=== PATIENT | female | born 1970 | race Caucasian/White ===

== ENCOUNTER 2017-10-10 09:14 | Observation (INO) | payer SELFPAY ==
[2017-10-10 14:00] VITALS: BP 107/61; PULSE 89; RESP 18; TEMP 98.5; O2SAT 96
[2017-10-10] MEDS ORDERED: ACETAMINOPHEN 325 MG TAB PO PRN (14:45)
[2017-10-10] MEDS ORDERED: ONDANSETRON HCL 4 MG/2 ML VIAL IV PUSH PRN (14:45)
[2017-10-10] MEDS ORDERED: SODIUM CHLOR 0.9% 250 ML INJ 250 ML IV ONE (14:45)
[2017-10-10] MEDS: ESTROGENS CONJUGATED 25 MG/5 ML VIAL IV PUSH SCH ×2 (15:46→18:26)
[2017-10-10] MEDS: FERROUS SULFATE 325 MG (65 MG ELEMENTAL IRON) TAB PO SCH (18:07)
[2017-10-10] MEDS: diphenhydrAMINE HCL 25 MG CAP PO PRN ×2 (18:07→23:55)
[2017-10-10 18:15] VITALS: BP 120/65; PULSE 95; RESP 18; TEMP 98.8; O2SAT 98
--- NOTE | 2017-10-10 18:53 | RADRPT ---
EXAM DATE/TIME: 10/10/2017 17:35 [facility] COMPARISON: No previous studies available for comparison. INDICATIONS : Bleeding. MEDICAL HISTORY : Asthma. Claustrophobia. SURGICAL HISTORY : Tubal ligation. section. ENCOUNTER: Initial ACUITY: 1 month PAIN SCORE: 0/10 LOCATION: Bilateral pelvis MEASUREMENTS: UTERUS: 9.5 x 7.5 x 6.9 cm ENDOMETRIAL STRIPE: 10 mm RIGHT OVARY: cm Non visualized LEFT OVARY: cm Non visualized FINDINGS: UTERUS: There is a 4.0 cm solid area of heterogeneous circumscribed echogenicity in the fundus with vasculari ty consistent with fibroid. Multiple nabothian cysts in the cervix up to 1 cm in size RIGHT OVARY: Not visualized LEFT OVARY: Not visualized MISCELLANEOUS: No free fluid. CONCLUSION: 4.0 cm fibroid fundus of uterus. Endometrium is 10 mm in thickness without encroachment. Bilateral ovaries not visualized with no evidence free fluid or adnexal mass Tuan Archer MD on October 10, 2017 at 18:49 Board Certified Radiologist. This report was verified electronically.
[2017-10-10 18:54] VITALS: BP 120/65; PULSE 95; RESP 18; TEMP 98.8; O2SAT 98
[2017-10-10 19:06] VITALS: BP 119/66; PULSE 92; RESP 18; TEMP 99.2; O2SAT 98
--- NOTE | 2017-10-10 21:43 | HHI.HP ---
HPI Chief Complaint heavy vaginal bleeding Travel History International Travel<30 Days: No Contact w/Intl Traveler<30Days: No History of Present Illness HPI 47 yo admitted from ED for menorrhagia and symptomatic anemia. She missed her period last month and has now had a period for 3 weeks. First 2 weeks was spotting, only required light tampon. The last seven days, she has had very heavy flow and has been using menstrual cups; believes she has bleed at least 8 oz a day. She ahs only had to change her cup 2 times today, min bleeding now. She is feeling very fatigued, dyspnea on exertion, having palpitations. + orthostatic hypotension. Hgb at [facility] 5.4. She was initially tachycardic but responded well to fluid bolus, normotensive. In ED she did have a large clot on speculum exam; pt states she really had not had bleeding since then. Menses are usually every four weeks; she typically has 3 heavy days; first day she has super tampon change every hour and next two days supertampon change every two hours. Over the last two years her bleeding profile has been changing ; approx every other month she has a very light period. She has a history of anemia; states never had a workup as to why. She does take iron at home. She was able to donate blood six months ago so she must have had normal hemoglobin at that time. 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 She does not like doctors or medicine; she follows a more holistic approach. History Past Medical History Narrative Medical anemia Obstetric History Obstetric History G1 CD, G2 and 3 Past Surgical History Narrative Surgical CD and pp btl Family History Narrative Family History Mother w breast cancer, after age 50 (recommended pt start having mammograms). No family hx of colon, uterine or ovarian cancer Social History Alcohol Use: No Tobacco Use: No Substance Abuse: No Allergies-Medications (Allergen,Severity, Reaction): Coded Allergies: codeine (Verified Allergy, Severe, Nausea/Vomiting, 10/10/17) Home Meds No Active Prescriptions or Reported Meds Review of Systems General / Constitutional: No: Fever, Weight Gain, Chills, Other Eyes: No: Diploplia, Blurred Vision, Visual changes, Pain, Photophobia HENT: No: Headaches, Vertigo, Lightheadedness Cardiovascular: Palpitations, No: Irregular Rhythm, Chest Pain or Discomfort, Tachycardia, Syncope, Varicosities, Edema, Cyanosis Respiratory: Short of Breath, No: Cough, Other Gastrointestinal: No: Nausea, Vomiting, Diarrhea Genitourinary: Menorrhagia, Vaginal Bleeding, No: Decreased Urinary Output, Oliguria Musculoskeletal: No: Limited ROM, Weakness, Cramping, Edema, Pain Skin: No Rash, No Itching, No Dryness, No Lumps, No Change in Pigmentation, No Change in Nails, No Alopecia, No Lesions Neurologic: Weakness, Dizziness, No: Syncope, Focal Abnormalities, Coordination Problem, Headache, Slurred Speech, Seizures Psychiatric: No: Depression, Suicidal Ideations, Homicidal Ideation Endocrine: No: Heat Intolerance, Cold Intolerance, Polydipsia, Polyuria, Other Physical Exam Vital Signs Date Time Temp Pulse Resp B/P (MAP) Pulse Ox O2 Delivery O2 Flow Rate FiO2 10/10/17 19:06 99.2 92 18 119/66 98 10/10/17 18:54 98.8 95 18 120/65 98 10/10/17 18:15 98.8 95 18 120/65 (83) 98 10/10/17 14:00 98.5 89 18 107/61 (76) 96 Narrative GENERAL: Well-nourished, well-developed patient. SKIN: Warm and dry. HEAD: Normocephalic and atraumatic. EYES: No scleral icterus. No injection or drainage. ENT: No nasal drainage noted. Mucous membranes pink. Airway patent. NECK: Supple, trachea midline. No JVD. CARDIOVASCULAR: Regular rate and rhythm without murmurs, gallops, or rubs. RESPIRATORY: Breath sounds equal bilaterally. No accessory muscle use. ABDOMEN/GI: Abdomen soft, non-tender, bowel sounds present, no rebound, no guarding GENITOURINARY: External Genitalia: defer EXTREMITIES: No cyanosis or edema. BACK: Nontender without obvious deformity. No CVA tenderness. NEUROLOGICAL: Awake and alert. Motor and sensory grossly within normal limits. Normal speech. Caprini VTE Risk Assessment Caprini VTE Risk Assessment: No/Low Risk (score <= 1) VTE Pharm Contraindication: Active bleeding Caprini Risk Assessment Model Point Value = 1 Point Value = 2 Point Value = 3 Point Value = 5 Age 41-60 Minor surgery BMI > 25 kg/m2 Swollen legs Varicose veins or History of unexplained or recurrent spontaneous Oral contraceptives or hormone replacement Sepsis (< 1 month) Serious lung disease, including pneumonia (< 1 month) Abnormal pulmonary function Acute myocardial infarction Congestive heart failure (< 1 month) History of inflammatory bowel disease Medical patient at bed rest Age 61-74 Arthroscopic surgery Major open surgery (> 45 min) Laparoscopic surgery (> 45 min) Malignancy Confined to bed (> 72 hours) Immobilizing plaster cast Central venous access Age >= 75 History of VTE Family history of VTE Factor V Leiden Prothrombin [id number] Lupus anticoagulant Anticardiolipin antibodies Elevated serum homocysteine Heparin-induced thrombocytopenia Other congenital or acquired thrombophilia Stroke (< 1 month) Elective arthroplasty Hip, pelvis, or leg fracture Acute spinal cord injury (< 1 month) Prophylaxis Regimen Total Risk Factor Score Risk Level Prophylaxis Regimen 0-1 Low Early ambulation 2 Moderate Order ONE of the following: *Sequential Compression Device (SCD) *Heparin 5000 units SQ BID 3-4 Higher Order ONE of the following medications: *Heparin 5000 units SQ TID *Enoxaparin/Lovenox 40 mg SQ daily (WT < 150 kg, CrCl > 30 mL/min) *Enoxaparin/Lovenox 30 mg SQ daily (WT < 150 kg, CrCl > 10-29 mL/min) *Enoxaparin/Lovenox 30 mg SQ BID (WT < 150 kg, CrCl > 30 mL/min) AND/OR *Sequential Compression Device (SCD) 5 or more Highest Order ONE of the following medications: *Heparin 5000 units SQ TID (Preferred with Epidurals) *Enoxaparin/Lovenox 40 mg SQ daily (WT < 150 kg, CrCl > 30 mL/min) *Enoxaparin/Lovenox 30 mg SQ daily (WT < 150 kg, CrCl > 10-29 mL/min) *Enoxaparin/Lovenox 30 mg SQ BID (WT < 150 kg, CrCl > 30 mL/min) AND *Sequential Compression Device (SCD) Data Data Vital Signs Reviewed: Yes Orders Orders Place In Observation (10/10/17 ) Vital Signs (Adult) Q4H (10/10/17 14:31) Activity Oob Ad Beth (10/10/17 14:31) ^ Monitor (10/10/17 14:31) Diet Regular Basic (10/10/17 Dinner) Complete Blood Count With Diff (10/11/17 06:00) Ferrous Sulfate (Ferrous Sulfate) (10/10/17 18:00) Estrogens Conjugated Inj (Premarin Inj) (10/10/17 15:00) Ondansetron Inj (Zofran Inj) (10/10/17 14:45) Vte Prophylaxis Not Indicated (10/10/17 14:31) Scd Bilateral/Knee High LANA.BID (10/10/17 14:31) Red Blood Cells (Rbc) (10/10/17 14:31) Blood Product Administration .UPON TRANSFUSION (10/10/17 14:31) Sodium Chlor 0.9% 250 Ml Inj (Ns 250 Ml (10/10/17 14:45) Acetaminophen (Tylenol) (10/10/17 14:45) Diphenhydramine (Benadryl) (10/10/17 14:45) Blood Product Administration (10/10/17 17:22) Us Pelvis Comp W Transvaginal (10/10/17 ) Hepatic Functional Panel (10/11/17 06:00) Thyroid Stimulating Hormone (10/11/17 06:00) Basic Metabolic Panel (Bmp) (10/11/17 06:00) Assessment/Plan Problem List: (1) Anemia ICD Codes: D64.9 - Anemia, unspecified Plan: 47 yo being admitted for symptomatic anemia secondary to menorrhagia. Initially tachycardia, responded well to iv fluids. She has 2 units of prbc ordered and ready for transfusion. She has received two doses of IV estrogen. Vaginal bleeding minimal now. Will repeat hgb in am. TVUS reviewed with patient, one cm fundal fibroid, ES greater than 1cm. Discussed importance of outpatient endometrial biopsy and pap smear to rule out malignancy. (2) Menorrhagia ICD Codes: N92.0 - Excessive and frequent menstruation with regular cycle Assessment and Plan 47 yo here for anemia and menorrhagia. Vitals responded well to ivf. She has had min bleeding now. S/P 2 doses of estrogen. 2 uprbc ordered and available now. TVUS with 4 cm fibroid and ES of greater than 1 cm. Discussed need for outpt emb and pap. discussed importance of getting mammogram as well. Will check cbc and tsh in am Mami Giron MD Oct 10, 2017 21:43
[2017-10-11] VITALS: BP 105/57; PULSE 90; RESP 17; TEMP 98.4; O2SAT 99
[2017-10-11 00:30] VITALS: BP 101/62; PULSE 80; RESP 18; TEMP 96.2; O2SAT 98
[2017-10-11 06:53] LABS: AUTOMATED NEUTROPHIL # 4.1 TH/MM3 (1.8-7.7); BASOPHIL % 0.4 % (0.0-2.0); EOSINOPHIL % 0.7 % (0.0-4.0); HEMATOCRIT 26.6 % (35.0-46.0); HEMOGLOBIN 9.4 GM/DL (11.6-15.3); LYMPH % 17.5 % (9.0-44.0); MEAN CELL VOLUME 87.5 FL (80.0-100.0); MEAN CORPUSCULAR HEMOGLOBIN 30.9 PG (27.0-34.0); MEAN CORPUSCULAR HGB CONC 35.3 % (32.0-36.0); MEAN PLATELET VOLUME 8.5 FL (7.0-11.0); MONO % 6.2 % (0.0-8.0); MONOCYTE # 0.3 TH/MM3 (0-0.9); NEUT % 75.2 % (16.0-70.0); PLATELET COUNT 259 TH/MM3 (150-450); RED BLOOD COUNT 3.04 MIL/MM3 (4.00-5.30); RED CELL DISTRIBUTION WIDTH 15.7 % (11.6-17.2); WHITE BLOOD COUNT 5.5 TH/MM3 (4.0-11.0)
[2017-10-11 07:17] LABS: ALBUMIN 3.2 GM/DL (3.4-5.0); BICARBONATE 27.1 MEQ/L (21.0-32.0); CALCIUM 8.3 MG/DL (8.5-10.1); CREATININE 0.72 MG/DL (0.50-1.00); DIRECT BILIRUBIN ADULT 0.1 MG/DL (0.0-0.2)
[2017-10-11 07:28] LABS: INDIRECT BILIRUBIN 0.3 MG/DL (0.0-0.8); TOTAL BILIRUBIN ADULT 0.4 MG/DL (0.2-1.0)
[2017-10-11 08:00] VITALS: BP 114/60; PULSE 94; RESP 17; TEMP 98.3; O2SAT 99
[2017-10-11] MEDS ORDERED: medroxyPROGESTERone ACETATE 10 MG TAB PO SCH (09:00)
[2017-10-11] MEDS: FERROUS SULFATE 325 MG (65 MG ELEMENTAL IRON) TAB PO SCH (09:08)
--- NOTE | 2017-10-11 09:53 | HHI.PR ---
LAYOUT OPERATOR Note Note S: Pt feeling better, improved energy s/p 2 u prbc overnight. She is ambulating without difficulties. O: Vital Signs Date Time Temp Pulse Resp B/P (MAP) Pulse Ox O2 Delivery O2 Flow Rate FiO2 10/11/17 08:00 98.3 94 17 114/60 (78) 99 10/11/17 00:30 96.2 80 18 101/62 98 10/11/17 00:00 98.4 90 17 105/57 99 10/10/17 19:06 99.2 92 18 119/66 98 10/10/17 18:54 98.8 95 18 120/65 98 10/10/17 18:15 98.8 95 18 120/65 (83) 98 10/10/17 14:00 98.5 89 18 107/61 (76) 96 GEN NAD, no longer pale RESP CTAB ABD soft, nt/nd min bleeding EXT no c/c/e Laboratory Tests Test 10/11/17 06:13 White Blood Count 5.5 TH/MM3 (4.0-11.0) Red Blood Count 3.04 MIL/MM3 (4.00-5.30) Hemoglobin 9.4 GM/DL (11.6-15.3) Hematocrit 26.6 % (35.0-46.0) Mean Corpuscular Volume 87.5 FL (80.0-100.0) Mean Corpuscular Hemoglobin 30.9 PG (27.0-34.0) Mean Corpuscular Hemoglobin Concent 35.3 % (32.0-36.0) Red Cell Distribution Width 15.7 % (11.6-17.2) Platelet Count 259 TH/MM3 (150-450) Mean Platelet Volume 8.5 FL (7.0-11.0) Neutrophils (%) (Auto) 75.2 % (16.0-70.0) Lymphocytes (%) (Auto) 17.5 % (9.0-44.0) Monocytes (%) (Auto) 6.2 % (0.0-8.0) Eosinophils (%) (Auto) 0.7 % (0.0-4.0) Basophils (%) (Auto) 0.4 % (0.0-2.0) Neutrophils # (Auto) 4.1 TH/MM3 (1.8-7.7) Lymphocytes # (Auto) 1.0 TH/MM3 (1.0-4.8) Monocytes # (Auto) 0.3 TH/MM3 (0-0.9) Eosinophils # (Auto) 0.0 TH/MM3 (0-0.4) Basophils # (Auto) 0.0 TH/MM3 (0-0.2) CBC Comment DIFF FINAL Differential Comment Blood Urea Nitrogen 5 MG/DL (7-18) Creatinine 0.72 MG/DL (0.50-1.00) Random Glucose 80 MG/DL (74-106) Total Protein 6.0 GM/DL (6.4-8.2) Albumin 3.2 GM/DL (3.4-5.0) Calcium Level 8.3 MG/DL (8.5-10.1) Alkaline Phosphatase 48 U/L (45-117) Aspartate Amino Transf (AST/SGOT) 19 U/L (15-37) Alanine Aminotransferase (ALT/SGPT) 21 U/L (10-53) Total Bilirubin 0.4 MG/DL (0.2-1.0) Direct Bilirubin 0.1 MG/DL (0.0-0.2) Sodium Level 142 MEQ/L (136-145) Potassium Level 3.8 MEQ/L (3.5-5.1) Chloride Level 109 MEQ/L (98-107) Carbon Dioxide Level 27.1 MEQ/L (21.0-32.0) Anion Gap 6 MEQ/L (5-15) Estimat Glomerular Filtration Rate 87 ML/MIN (>89) Indirect Bilirubin 0.3 MG/DL (0.0-0.8) Thyroid Stimulating Hormone 3rd Gen 4.300 uIU/ML (0.358-3.740) A/P: 43 yo with symptomatic anemia 2/2 menorrhagia- now improved s/p 2 u prbc and estrogen iv x 2. She has min-mod bleeding today. Will send home with provera 10mg daily. Will check T4 as TSH is elevated and this may contribute to abn bleeding. Once T4 is resulted, will d/c home today. She is advised to f/u for pap /emb in office. Mami Giron MD Oct 11, 2017 09:53
--- NOTE | 2017-10-11 09:56 | HHI.DCPOC ---
Discharge Care Plan Diagnosis: (1) Anemia (2) Menorrhagia Your Health Problems Are: Vaginal bleeding Additional Problems S/P 2 uprbc. Procedures TVUS Consults none Report Symptoms to Your Doctor -Temperature above 100.5 degrees -Unusual pain or calf pain, shortness of breath, dyspnea -Increased vaginal bleeding -Painful or difficulty urinating Goals to Promote Your Health * To prevent worsening of your condition and complications * To maintain your health at the optimal level Directions to Meet Your Goals Take your medications as prescribed Follow your dietary instruction Follow activity as directed Ensure plenty of rest for recovery Drink fluids for hydration Keep your appointments as scheduled Take your immunizations and boosters as scheduled If your symptoms worsen call your PCP, if no PCP go to Urgent Care Center or Emergency Room Smoking is Dangerous to Your Health. Avoid second hand smoke Call the 24-hour crisis hotline for domestic abuse at Mami Giron MD Oct 11, 2017 09:56
[2017-10-11] MEDS ORDERED: MEDR10TA7 PO (09:58)
[2017-10-11 12:00] VITALS: BP 106/53; PULSE 105; RESP 18; TEMP 98.5; O2SAT 99
[2017-10-11] MEDS ORDERED: FERR325T20 PO (13:46)
== END 2017-10-11 15:03 | disposition home or self-care (01) ==
LOC: NEDDLT 09:14 → N06A 14:28
PROVIDERS: ADMIT Obstetrics & Gynecology; ATTEND Obstetrics & Gynecology
DX: N92.0 Excessive and frequent menstruation with regular cycle (principal); D50.0 Iron deficiency anemia secondary to blood loss (chronic); R53.83 Other fatigue; R06.09 Other forms of dyspnea; R00.2 Palpitations; I95.9 Hypotension, unspecified; R00.0 Tachycardia, unspecified; D25.9 Leiomyoma of uterus, unspecified; N88.8 Other specified noninflammatory disorders of cervix uteri
CPT/HCPCS: 36430; 76830; 76856; 80048; 80076; 84439; 84443; 85025; 86920; 96361; 96374; 96376; G0378; J7050; P9016; J1410